=== PATIENT | female | born 1980 | race Two or more races ===

== ENCOUNTER 2020-10-21 22:21 | Emergency (ER) | payer OTHER ==
[~2020-10-21] VITALS: Ht 162.6 cm; Wt 77.1 kg
[~2020-10-21 22:21] MED LIST: AMBIEN CR12.5 MG/BL PO; ATENOLOL25 MG PO; DALMANE30 MG; KLONOPIN0.5 MG/TAB PO; KLONOPIN2 MG/TAB; LAMICTAL100 MG; TENORMIN25 MG; TENORMIN50 MG; WELLBUTRIN XL150 MG
[2020-10-22] MEDS ORDERED: LEVSIN0.125 MG PO (04:53)
[2020-10-22] MEDS ORDERED: PEPCID20 MG PO (04:53)
[2020-10-22] MEDS ORDERED: AZITHROMYCIN500 MG PO (04:53)
[2020-10-22] MEDS ORDERED: PROTONIX20 MG PO (04:53)
[2020-10-22] MEDS ORDERED: INTESTINEX680 M2 PO (04:53)
== END 2020-10-22 05:06 | disposition home or self-care (01) ==
LOC: ER 22:21
DX: R10.9 Unspecified abdominal pain (principal); R19.7 Diarrhea, unspecified; H92.02 Otalgia, left ear; R11.2 Nausea with vomiting, unspecified; Z20.822 Contact with and (suspected) exposure to COVID-19

== ENCOUNTER 2021-03-26 20:26 | Emergency (ER) | payer OTHER ==
[~2021-03-26] VITALS: Ht 162.6 cm; Wt 77.1 kg
[~2021-03-26 20:26] MED LIST changes: +AZITHROMYCIN500 MG PO; +INTESTINEX680 M2 PO; +LEVSIN0.125 MG PO; +PEPCID20 MG PO; +PROTONIX20 MG PO
[2021-03-26] MEDS ORDERED: ATENOLOL50 MG PO (20:34)
[2021-03-26] MEDS ORDERED: CLONAZEPAM2 MG PO (20:34)
[2021-03-26] MEDS ORDERED: LISINOPRIL20 MG PO (20:34)
[2021-03-26] MEDS ORDERED: EPIPEN0.3 MG/0.1 IJ (20:35)
== END 2021-03-26 22:48 | disposition home or self-care (01) ==
LOC: ER 20:26
DX: D25.1 Intramural leiomyoma of uterus (principal); N93.8 Other specified abnormal uterine and vaginal bleeding

== ENCOUNTER 2021-07-01 19:45 | Emergency (ER) | payer OTHER ==
[~2021-07-01] VITALS: Ht 162.6 cm; Wt 77.1 kg
[~2021-07-01 19:45] MED LIST changes: +ATENOLOL50 MG PO; +CLONAZEPAM2 MG PO; +EPIPEN0.3 MG/0.1 IJ; +LISINOPRIL20 MG PO
[2021-07-01] MEDS ORDERED: PROTONIX40 MG (20:20)
== END 2021-07-01 22:14 | disposition home or self-care (01) ==
LOC: ER 19:45
DX: N20.0 Calculus of kidney (principal); Z87.442 Personal history of urinary calculi; M62.838 Other muscle spasm; I10 Essential (primary) hypertension; F32.A Depression, unspecified; Z91.013 Allergy to seafood

== ENCOUNTER 2021-08-17 17:47 | Emergency (ER) | payer OTHER ==
[~2021-08-17] VITALS: Ht 162.6 cm; Wt 77.1 kg
[~2021-08-17 17:47] MED LIST changes: +PROTONIX40 MG
[2021-08-17] MEDS ORDERED: MEDROXYPROGESTE10 MG PO (22:51)
== END 2021-08-17 22:54 | disposition home or self-care (01) ==
LOC: ER 17:47
DX: N92.3 Ovulation bleeding (principal); Z88.8 Allergy status to other drugs, medicaments and biological substances; Z91.013 Allergy to seafood; I10 Essential (primary) hypertension

== ENCOUNTER 2022-01-31 21:05 | Emergency (ER) | payer OTHER ==
[~2022-01-31] VITALS: Ht 162.6 cm; Wt 77.1 kg
[~2022-01-31 21:05] MED LIST changes: +MEDROXYPROGESTE10 MG PO; +PEPCID40 MG PO; +VASOTEC5 MG PO; +ZOFRAN8 MG PO
[2022-01-31] MEDS ORDERED: DOLOGEN CAPLET1 EACH PO (22:53)
[2022-01-31] MEDS ORDERED: MEDROXYPROGESTE10 MG PO (22:53)
== END 2022-01-31 22:59 | disposition home or self-care (01) ==
LOC: ER 21:05
DX: D25.9 Leiomyoma of uterus, unspecified (principal); N93.9 Abnormal uterine and vaginal bleeding, unspecified; Z88.8 Allergy status to other drugs, medicaments and biological substances

== ENCOUNTER 2022-06-11 22:58 | Emergency (ER) | payer OTHER ==
[~2022-06-11] VITALS: Ht 162.6 cm; Wt 77.1 kg
[~2022-06-11 22:58] MED LIST changes: +DOLOGEN CAPLET1 EACH PO
== END 2022-06-12 00:50 | disposition home or self-care (01) ==
LOC: ER 22:58
DX: M54.2 Cervicalgia (principal); G24.3 Spasmodic torticollis; Z88.8 Allergy status to other drugs, medicaments and biological substances

== ENCOUNTER 2024-08-04 10:42 | Emergency (ER) | payer OTHER ==
[~2024-08-04] VITALS: Ht 162.6 cm; Wt 77.1 kg
[2024-08-04] MEDS ORDERED: HYDROCHLOROTHIA25 MG PO (11:54)
[2024-08-04] MEDS ORDERED: LOSARTAN POTASS50 MG PO (11:54)
[2024-08-04] MEDS ORDERED: MORPHINE SULFATE 4 MG/ML VIAL IV STA (12:53)
[2024-08-04 13:39] LABS: BASO % 0.4 % (0.1-1.2); EOS # 0.13 (0.04-0.54); EOS % 1.7 % (0.7-7.0); HEMATOCRIT 36.7 % (34.1-44.9); LYMPH # 1.54 (1.18-3.74); LYMPH % 19.9 % (19.3-53.1); MEAN CORPUSCULAR HEMOGLOBIN 27.2 pg (25.6-32.2); MONO # 0.72 (0.24-0.82); MONO % 9.3 % (4.7-12.5); NEUT # 5.27 (1.56-6.13); NEUT % 68.3 % (34.0-71.1); PLATELET COUNT 181 K/uL (163-369); RED BLOOD COUNT 4.41 M/uL (3.93-5.22); RED CELL DISTRIBUTION WIDTH 13.6 % (11.6-14.4)
[2024-08-04 14:03] LABS: CREATININE SERUM 0.78 mg/dL (0.55-1.02); GFR 79.51; POTASSIUM 3.88 mEq/L (3.5-5.1)
[2024-08-04 14:24] LABS: PH,URINE 5.5 (5.0-8.0); URINE APPEARANCE Turbid; URINE BILIRRUBIN Negative (NEGATIVE); URINE BLOOD Trace; URINE COLOR Yellow; URINE GLUCOSE Negative (NEGATIVE); URINE KETONE Trace (NEGATIVE); URINE LEUKOCYTE Large; URINE NITRATE Negative; URINE PROTEIN Trace (NEGATIVE); URINE UROBILINOGEN 0.2 E.U./dl
[2024-08-04 14:26] LABS: URINE CAST 3.53 uL (0.0-1.40); URINE EPITHELIAL CELLS 114.7 uL (0.0-38.8); URINE RBC 36.2 uL (0.0-20.8); URINE WBC 994.6 uL (0.0-23.2)
[2024-08-04 15:44] LABS: URINE BACTERIA > 9821.5 uL (0.0-1933)
[2024-08-04 15:45] LABS: URINE CRYSTALS FEW /HPF
[2024-08-04 15:46] LABS: URINE MUCUS MODERATE
[2024-08-04 15:47] LABS: URINE YEAST FEW /hpf
[2024-08-04] MEDS ORDERED: levoFLOXacin IN DEXTROSE 5 % 500MG/100ML PIGGYBAG IV ONE ×2 (17:45→18:25)
[2024-08-04] MEDS ORDERED: ONDANSETRON HCL 2 MG/ML VIAL ONE (19:14)
== END 2024-08-04 20:15 | disposition home or self-care (01) ==
LOC: ER 11:06
PROVIDERS: General Practice
DX: N39.0 Urinary tract infection, site not specified (principal); N28.1 Cyst of kidney, acquired; Z88.8 Allergy status to other drugs, medicaments and biological substances

== ENCOUNTER 2024-08-13 18:57 | Emergency (ER) | payer OTHER ==
[~2024-08-13] VITALS: Ht 162.6 cm; Wt 77.1 kg
[~2024-08-13 18:57] MED LIST changes: +HYDROCHLOROTHIA25 MG PO; +LOSARTAN POTASS50 MG PO
[2024-08-13 20:44] LABS: BASO % 0.5 % (0.1-1.2); EOS # 0.08 (0.04-0.54); HEMATOCRIT 38.5 % (34.1-44.9); HEMOGLOBIN 12.9 g/dL (11.2-15.7); LYMPH # 1.54 (1.18-3.74); LYMPH % 19.3 % (19.3-53.1); MEAN CORPUSCULAR HEMOGLOBIN 27.4 pg (25.6-32.2); MONO # 0.75 (0.24-0.82); MONO % 9.4 % (4.7-12.5); NEUT # 5.49 (1.56-6.13); NEUT % 68.9 % (34.0-71.1); PLATELET COUNT 210 K/uL (163-369); RED BLOOD COUNT 4.71 M/uL (3.93-5.22); RED CELL DISTRIBUTION WIDTH 13.2 % (11.6-14.4)
[2024-08-13 20:51] LABS: PARTIAL THROMBOPLASTIN TIME 24.3 SECONDS (22.0-34.0); PROTHROMBIN TIME 10.9 SECONDS (9.0-11.5)
[2024-08-13 20:56] LABS: ALBUMIN 3.2 gm/dL (3.4-5.0); BILIRUBIN TOTAL 0.31 mg/dL (0.3-1.2); CALCIUM 8.6 mg/dL (8.5-10.1); CREATININE SERUM 0.97 mg/dL (0.55-1.02); GFR 61.82; POTASSIUM 4.06 mEq/L (3.5-5.1); TOTAL PROTEIN 6.2 gm/dL (6.4-8.2)
[2024-08-13 21:30] LABS: PH,URINE 6.5 (5.0-8.0); URINE APPEARANCE Cloudy; URINE BILIRRUBIN Negative (NEGATIVE); URINE BLOOD Negative; URINE COLOR Yellow; URINE GLUCOSE Negative (NEGATIVE); URINE KETONE Trace (NEGATIVE); URINE LEUKOCYTE Negative; URINE NITRATE Negative; URINE PROTEIN Trace (NEGATIVE); URINE UROBILINOGEN 0.2 E.U./dl
[2024-08-13 21:34] LABS: URINE BACTERIA 2560.5 uL (0.0-1933); URINE CAST 2.06 uL (0.0-1.40); URINE EPITHELIAL CELLS 163.6 uL (0.0-38.8); URINE WBC 39.2 uL (0.0-23.2)
[2024-08-13 21:47] LABS: URINE MUCUS HEAVY
== END 2024-08-13 22:05 | disposition home or self-care (01) ==
LOC: ER 19:02
PROVIDERS: General Practice
DX: N83.209 Unspecified ovarian cyst, unspecified side (principal); R10.9 Unspecified abdominal pain; I10 Essential (primary) hypertension; Z88.5 Allergy status to narcotic agent; Z88.9 Allergy status to unspecified drugs, medicaments and biological substances

== ENCOUNTER 2024-08-16 02:24 | Emergency (ER) | payer OTHER ==
[~2024-08-16] VITALS: Ht 162.6 cm; Wt 77.1 kg
[2024-08-16] MEDS ORDERED: MORPHINE SULFATE 4 MG/ML VIAL IV STA (07:49)
[2024-08-16] MEDS ORDERED: 0.9 % SODIUM CHLORIDE 1,000 ML IV STA (07:49)
[2024-08-16] MEDS ORDERED: DIPHENHYDRAMINE HCL 50 MG/ML VIAL 1ML IV STA (07:50)
[2024-08-16] MEDS ORDERED: METHYLPREDNISOLONE SOD SUCC 125 MG VIAL IV STA (07:50)
[2024-08-16] MEDS ORDERED: METHYLPREDNISOLONE SOD SUCC 125 MG VIAL ONE (07:57)
[2024-08-16] MEDS ORDERED: DIPHENHYDRAMINE HCL 50 MG/ML VIAL 1ML ONE (07:57)
[2024-08-16] MEDS ORDERED: WATER FOR INJ.,BACTERIOSTATIC 30 ML VIAL IJ ONE (08:00)
[2024-08-16 09:49] LABS: ALBUMIN 3.5 gm/dL (3.4-5.0); BILIRUBIN TOTAL 0.19 mg/dL (0.3-1.2); CREATININE SERUM 0.79 mg/dL (0.55-1.02); GFR 78.35; GLOBULINA 3.7 G/DL (2.4-3.5); POTASSIUM 3.81 mEq/L (3.5-5.1); TOTAL PROTEIN 7.2 gm/dL (6.4-8.2)
[2024-08-16 10:07] LABS: BASO % 0.1 % (0.1-1.2); EOS # 0.02 (0.04-0.54); EOS % 0.1 % (0.7-7.0); HEMATOCRIT 40.3 % (34.1-44.9); HEMOGLOBIN 13.2 g/dL (11.2-15.7); LYMPH # 1.77 (1.18-3.74); LYMPH % 13.1 % (19.3-53.1); MEAN CORPUSCULAR HEMOGLOBIN 27.4 pg (25.6-32.2); MONO # 1.05 (0.24-0.82); MONO % 7.7 % (4.7-12.5); NEUT # 10.59 (1.56-6.13); NEUT % 78.3 % (34.0-71.1); PLATELET COUNT 229 K/uL (163-369); RED BLOOD COUNT 4.82 M/uL (3.93-5.22); RED CELL DISTRIBUTION WIDTH 13.7 % (11.6-14.4)
[2024-08-16 10:08] LABS: PH,URINE 5.5 (5.0-8.0); URINE APPEARANCE Cloudy; URINE BILIRRUBIN Negative (NEGATIVE); URINE BLOOD Negative; URINE COLOR Yellow; URINE GLUCOSE Negative (NEGATIVE); URINE KETONE Negative (NEGATIVE); URINE LEUKOCYTE Negative; URINE NITRATE Negative; URINE PROTEIN Negative (NEGATIVE); URINE UROBILINOGEN 0.2 E.U./dl
[2024-08-16 10:12] LABS: URINE EPITHELIAL CELLS 33.4 uL (0.0-38.8); URINE RBC 24.3 uL (0.0-20.8); URINE WBC 2.3 uL (0.0-23.2)
[2024-08-16 10:15] LABS: INR 0.94; PARTIAL THROMBOPLASTIN TIME 24.2 SECONDS (22.0-34.0); PROTHROMBIN TIME 10.3 SECONDS (9.0-11.5)
[2024-08-16 10:40] LABS: URINE CAST 0.29 uL (0.0-1.40); URINE CRYSTALS MODERATE /HPF; URINE YEAST FEW /hpf
== END 2024-08-16 14:37 | disposition home or self-care (01) ==
LOC: ER 03:22
DX: N39.0 Urinary tract infection, site not specified (principal); Z88.8 Allergy status to other drugs, medicaments and biological substances

== ENCOUNTER 2024-08-19 22:03 | Emergency (ER) | payer OTHER ==
[~2024-08-19] VITALS: Ht 162.6 cm; Wt 773.4 kg
[2024-08-20] MEDS ORDERED: CEFTRIAXONE SODIUM 1,000 MG VIAL IM STA (01:06)
[2024-08-20] MEDS ORDERED: NEOMYCIN/POLYMYXIN B/HYDROCORT 20 DR/ML BOTTLE OT STA (01:06)
[2024-08-20] MEDS ORDERED: OxyCODONE HCL/APAP UD (PERCOCET) PO STA (01:07)
[2024-08-20] MEDS ORDERED: NEOMYCIN/POLYMYXIN B/HYDROCORT 20 DR/ML BOTTLE OT ONE (01:08)
[2024-08-20] MEDS ORDERED: CEFTRIAXONE SODIUM 1,000 MG VIAL ONE (01:08)
[2024-08-20] MEDS ORDERED: CEPHALEXIN500 MG PO (01:09)
[2024-08-20] MEDS ORDERED: PHENAGIL TABLE1 EACH PO (01:09)
[2024-08-20] MEDS ORDERED: CORTISPORIN EAR10 M1 OTIC (01:10)
== END 2024-08-20 01:35 ==
LOC: ER 22:24
DX: H60.8X2 Other otitis externa, left ear (principal); J32.9 Chronic sinusitis, unspecified; Z88.8 Allergy status to other drugs, medicaments and biological substances

== ENCOUNTER → 2024-08-22 | Emergency (ER) | payer OTHER ==
[~2024-08-22] VITALS: Ht 162.6 cm; Wt 77.1 kg
[~2024-08-22] MED LIST changes: +ACETAMINOPHEN 500 MG GEL..CAP PO ONE; +CEFTRIAXONE SODIUM 1,000 MG VIAL IM STA; +CEFTRIAXONE SODIUM 1,000 MG VIAL ONE; +CEPHALEXIN500 MG PO; +CORTISPORIN EAR10 M1 OTIC; +KETOROLAC TROMETHAMINE 30 MG VIAL IM STA; +KETOROLAC TROMETHAMINE 30 MG VIAL ONE; +PHENAGIL TABLE1 EACH PO
[2024-08-22 22:15] LABS: BASO % 0.6 % (0.1-1.2); EOS # 0.36 (0.04-0.54); EOS % 5.5 % (0.7-7.0); HEMATOCRIT 41.9 % (34.1-44.9); HEMOGLOBIN 13.7 g/dL (11.2-15.7); LYMPH # 1.46 (1.18-3.74); LYMPH % 22.4 % (19.3-53.1); MEAN CORPUSCULAR HEMOGLOBIN 27.1 pg (25.6-32.2); MONO # 0.97 (0.24-0.82); NEUT # 3.63 (1.56-6.13); NEUT % 55.8 % (34.0-71.1); PLATELET COUNT 186 K/uL (163-369); RED BLOOD COUNT 5.05 M/uL (3.93-5.22); RED CELL DISTRIBUTION WIDTH 13.5 % (11.6-14.4)
[2024-08-22 22:17] LABS: MONO % 14.9 % (4.7-12.5)
[2024-08-22 22:21] LABS: PH,URINE 6.5 (5.0-8.0); URINE APPEARANCE Cloudy; URINE BILIRRUBIN Negative (NEGATIVE); URINE BLOOD Negative; URINE COLOR Yellow; URINE GLUCOSE Negative (NEGATIVE); URINE KETONE Trace (NEGATIVE); URINE LEUKOCYTE Negative; URINE NITRATE Negative; URINE PROTEIN Trace (NEGATIVE); URINE UROBILINOGEN 0.2 E.U./dl
[2024-08-22 22:25] LABS: URINE BACTERIA 72.2 uL (0.0-1933); URINE CAST 2.65 uL (0.0-1.40); URINE EPITHELIAL CELLS 89.9 uL (0.0-38.8); URINE RBC 85.1 uL (0.0-20.8); URINE WBC 20.8 uL (0.0-23.2)
[2024-08-22 22:31] LABS: TYPE CELLS SQUAMOUS
[2024-08-22 22:37] LABS: INFLUENZA A AG NEGATIVE (NEGATIVE); INFLUENZA B AG NEGATIVE (NEGATIVE)
[2024-08-22 22:45] LABS: ALBUMIN 3.2 gm/dL (3.4-5.0); BILIRUBIN TOTAL 0.33 mg/dL (0.3-1.2); CALCIUM 9.3 mg/dL (8.5-10.1); CREATININE SERUM 1.28 mg/dL (0.55-1.02); GFR 44.89; GLOBULINA 3.4 G/DL (2.4-3.5); POTASSIUM 4.45 mEq/L (3.5-5.1); TOTAL PROTEIN 6.6 gm/dL (6.4-8.2)
[2024-08-22 22:51] LABS: COVID-19 AG POSITIVE (NEGATIVE)
== END | disposition home or self-care (01) ==
LOC: ER 19:31
PROVIDERS: General Practice
DX: U07.1 COVID-19 (principal); H60.92 Unspecified otitis externa, left ear; Z88.8 Allergy status to other drugs, medicaments and biological substances

== ENCOUNTER 2024-08-25 10:02 | Emergency (ER) | payer OTHER ==
[~2024-08-25] VITALS: Ht 162.6 cm; Wt 77.1 kg
[~2024-08-25 10:02] MED LIST changes: -ACETAMINOPHEN 500 MG GEL..CAP PO ONE; -CEFTRIAXONE SODIUM 1,000 MG VIAL IM STA; -CEFTRIAXONE SODIUM 1,000 MG VIAL ONE; -KETOROLAC TROMETHAMINE 30 MG VIAL IM STA; -KETOROLAC TROMETHAMINE 30 MG VIAL ONE
[2024-08-25] MEDS ORDERED: ACETAMINOPHEN 500 MG GEL..CAP PO ONE (12:30)
[2024-08-25 13:04] LABS: BASO % 0.4 % (0.1-1.2); EOS # 0.13 (0.04-0.54); EOS % 1.8 % (0.7-7.0); HEMATOCRIT 39.1 % (34.1-44.9); HEMOGLOBIN 12.8 g/dL (11.2-15.7); LYMPH # 2.17 (1.18-3.74); LYMPH % 30.8 % (19.3-53.1); MEAN CORPUSCULAR HEMOGLOBIN 27.2 pg (25.6-32.2); MONO # 0.59 (0.24-0.82); MONO % 8.4 % (4.7-12.5); NEUT # 4.08 (1.56-6.13); NEUT % 57.9 % (34.0-71.1); PLATELET COUNT 185 K/uL (163-369); RED CELL DISTRIBUTION WIDTH 13.2 % (11.6-14.4)
[2024-08-25 13:35] LABS: CALCIUM 9.4 mg/dL (8.5-10.1); CREATININE SERUM 0.69 mg/dL (0.55-1.02); GFR 91.59; POTASSIUM 4.1 mEq/L (3.5-5.1)
[2024-08-25 13:40] LABS: URINE APPEARANCE Clear; URINE BILIRRUBIN Negative (NEGATIVE); URINE BLOOD Negative; URINE COLOR Yellow; URINE GLUCOSE Negative (NEGATIVE); URINE KETONE Trace (NEGATIVE); URINE LEUKOCYTE Negative; URINE NITRATE Negative; URINE PROTEIN Negative (NEGATIVE); URINE UROBILINOGEN 0.2 E.U./dl
[2024-08-25 13:44] LABS: URINE EPITHELIAL CELLS 21.9 uL (0.0-38.8); URINE RBC 9.2 uL (0.0-20.8); URINE WBC 18.8 uL (0.0-23.2)
[2024-08-25 14:02] LABS: COVID-19 AG NEGATIVE (NEGATIVE)
[2024-08-25 14:14] LABS: INFLUENZA A AG NEGATIVE (NEGATIVE); INFLUENZA B AG NEGATIVE (NEGATIVE)
== END 2024-08-25 16:12 | disposition home or self-care (01) ==
LOC: ER 10:02
PROVIDERS: Emergency Medicine
DX: J40 Bronchitis, not specified as acute or chronic (principal); Z91.013 Allergy to seafood; I10 Essential (primary) hypertension; Z20.822 Contact with and (suspected) exposure to COVID-19

== ENCOUNTER 2024-09-02 18:51 | Emergency (ER) | payer OTHER ==
[~2024-09-02] VITALS: Ht 162.6 cm; Wt 77.1 kg
[2024-09-02] MEDS ORDERED: DEXAMETHASONE SODIUM PHOSPHATE 4 MG/ML VIAL IM STA (19:39)
[2024-09-02] MEDS ORDERED: CEFTRIAXONE SODIUM 1,000 MG VIAL IM STA (19:39)
[2024-09-02 20:31] LABS: BASO % 0.4 % (0.1-1.2); EOS # 0.26 (0.04-0.54); EOS % 2.6 % (0.7-7.0); LYMPH # 2.67 (1.18-3.74); LYMPH % 27.1 % (19.3-53.1); MEAN PLATELET VOLUME 10.50 fl (9.4-12.4); MONO # 0.77 (0.24-0.82); MONO % 7.8 % (4.7-12.5); NEUT # 6.00 (1.56-6.13); NEUT % 61.0 % (34.0-71.1); RED CELL DISTRIBUTION WIDTH 13.8 % (11.6-14.4)
[2024-09-02 20:34] LABS: COVID-19 AG NEGATIVE (NEGATIVE)
[2024-09-05] MEDS ORDERED: AMOX-CLAV 875-1 EACH PO (18:59)
[2024-09-05] MEDS ORDERED: PEPCID AC20 MG PO (18:59)
== END 2024-09-02 21:13 | disposition home or self-care (01) ==
LOC: ER 19:18
PROVIDERS: General Practice
DX: M43.6 Torticollis (principal); R53.1 Weakness; Z88.8 Allergy status to other drugs, medicaments and biological substances; Z20.822 Contact with and (suspected) exposure to COVID-19

== ENCOUNTER → 2024-09-05 | Emergency (ER) | payer OTHER ==
[~2024-09-05] VITALS: Ht 162.6 cm; Wt 79.4 kg
[~2024-09-05] MED LIST changes: +ACETAMINOPHEN 500 MG GEL..CAP PO ONE; +AMOX-CLAV 875-1 EACH PO; +CEFTRIAXONE SODIUM 1,000 MG VIAL IM ONE; +CLEOCIN HCL300 MG PO; +GABAPENTIN 300 MG CAPSULE PO ONE; +PEPCID AC20 MG PO; +TRAMADOL HCL50 MG PO
== END | disposition home or self-care (01) ==
LOC: ER 17:38
DX: K08.89 Other specified disorders of teeth and supporting structures (principal); I10 Essential (primary) hypertension; F41.8 Other specified anxiety disorders; Z91.013 Allergy to seafood

== ENCOUNTER 2024-09-06 22:40 | Emergency (ER) | payer OTHER ==
[~2024-09-06] VITALS: Ht 162.6 cm; Wt 79.4 kg
[~2024-09-06 22:40] MED LIST changes: -ACETAMINOPHEN 500 MG GEL..CAP PO ONE; -CEFTRIAXONE SODIUM 1,000 MG VIAL IM ONE; -CLEOCIN HCL300 MG PO; -GABAPENTIN 300 MG CAPSULE PO ONE; -TRAMADOL HCL50 MG PO
[2024-09-07] MEDS ORDERED: CEFTRIAXONE SODIUM 1,000 MG VIAL IM STA (00:51)
[2024-09-07] MEDS ORDERED: TRAMADOL HCL 50 MG TABLET PO STA (00:51)
[2024-09-07] MEDS ORDERED: CLEOCIN HCL300 MG PO (01:02)
[2024-09-07] MEDS ORDERED: TRAMADOL HCL50 MG PO ×2 (01:02→01:03)
== END 2024-09-07 01:31 ==
LOC: ER 22:46
DX: K08.89 Other specified disorders of teeth and supporting structures (principal); Z88.8 Allergy status to other drugs, medicaments and biological substances

== ENCOUNTER 2024-09-10 16:56 | Emergency (ER) | payer OTHER ==
[~2024-09-10] VITALS: Ht 162.6 cm; Wt 77.1 kg
[~2024-09-10 16:56] MED LIST changes: +CLEOCIN HCL300 MG PO; +TRAMADOL HCL50 MG PO
[2024-09-10] MEDS ORDERED: ATIVAN2 M1 PO (17:07)
[2024-09-10] MEDS ORDERED: TRAMADOL HCL 50 MG TABLET PO ONE (17:45)
[2024-09-10] MEDS ORDERED: KETOROLAC TROMETHAMINE 60 MG VIAL IM ONE (17:45)
[2024-09-10 18:01] LABS: BASO % 0.4 % (0.1-1.2); EOS # 0.11 (0.04-0.54); EOS % 1.0 % (0.7-7.0); LYMPH # 1.96 (1.18-3.74); LYMPH % 18.1 % (19.3-53.1); MEAN PLATELET VOLUME 10.20 fl (9.4-12.4); MONO # 0.80 (0.24-0.82); MONO % 7.4 % (4.7-12.5); NEUT # 7.84 (1.56-6.13); NEUT % 72.3 % (34.0-71.1); RED CELL DISTRIBUTION WIDTH 14.4 % (11.6-14.4)
[2024-09-10 18:25] LABS: GLUCOSE FASTING 113.0 mg/dL (65-100); OSMOLALITY SERUM 286.0 MOSM/KG (275-295)
[2024-09-10 18:29] LABS: ALT/SGPT 26.0 U/L (12-78); AST/SGOT 8.0 U/L (15-37); BILIRUBIN TOTAL 0.31 mg/dL (0.3-1.2); BUN CREA RATIO 14.0 (7.0-25.0); CREATININE SERUM 0.92 mg/dL (0.55-1.02); GFR 65.72; GLOBULINA 3.0 G/DL (2.4-3.5)
[2024-09-10 19:18] LABS: URINE APPEARANCE Cloudy; URINE BILIRRUBIN Negative (NEGATIVE); URINE BLOOD Negative; URINE COLOR Dark Yellow; URINE GLUCOSE Negative (NEGATIVE); URINE KETONE Trace (NEGATIVE); URINE LEUKOCYTE Negative; URINE NITRATE Negative; URINE PROTEIN Negative (NEGATIVE); URINE UROBILINOGEN 0.2 E.U./dl
[2024-09-10 19:22] LABS: URINE BACTERIA 2279.9 uL (0.0-1933); URINE CAST 1.90 uL (0.0-1.40); URINE EPITHELIAL CELLS 85.0 uL (0.0-38.8); URINE RBC 209.1 uL (0.0-20.8); URINE WBC 24.1 uL (0.0-23.2)
[2024-09-10 19:59] LABS: TYPE CELLS SQUAMOUS; URINE CRYSTALS MODERATE /HPF
[2024-09-10 20:00] LABS: URINE MUCUS MODERATE; URINE YEAST FEW /hpf
[2024-09-10 23:48] VITALS: BP 148/87; O2SAT 96
[2024-09-10] MEDS ORDERED: BACTRIM DS TAB1 EACH PO (23:59)
[2024-09-10] MEDS ORDERED: PEPCID AC20 MG PO (23:59)
== END 2024-09-11 00:05 | disposition home or self-care (01) ==
LOC: ER 16:56
PROVIDERS: General Practice
DX: N39.0 Urinary tract infection, site not specified (principal); I10 Essential (primary) hypertension; Z88.8 Allergy status to other drugs, medicaments and biological substances

== ENCOUNTER 2024-09-11 00:19 | Emergency (ER) | payer OTHER ==
[~2024-09-11] VITALS: Ht 162.6 cm; Wt 77.1 kg
[~2024-09-11 00:19] MED LIST changes: +ATIVAN2 M1 PO; +BACTRIM DS TAB1 EACH PO
[2024-09-11] MEDS ORDERED: CLINDAMYCIN PHOSPHATE 150 MG/ML (600mg) IM STA (05:10)
[2024-09-11] MEDS ORDERED: DEXAMETHASONE SODIUM PHOSPHATE 4 MG/ML VIAL IM STA (05:10)
[2024-09-11] MEDS ORDERED: ACETAMINOPHEN WITH CODEINE 1 UDTAB TABLET PO STA (05:11)
== END 2024-09-11 05:45 | disposition home or self-care (01) ==
LOC: ER 00:19
DX: K05.219 Aggressive periodontitis, localized, unspecified severity (principal); K05.10 Chronic gingivitis, plaque induced; Z88.6 Allergy status to analgesic agent; Z88.8 Allergy status to other drugs, medicaments and biological substances

== ENCOUNTER 2024-09-13 23:53 | Emergency (ER) | payer OTHER ==
[~2024-09-13] VITALS: Ht 162.6 cm; Wt 77.1 kg
[2024-09-14] MEDS ORDERED: PROMETHAZINE HCL 25 MG/ML AMPUL IM STA (04:42)
[2024-09-14] MEDS ORDERED: METOCLOPRAMIDE HCL 5 MG/ML VIAL IM STA (04:42)
[2024-09-15] MEDS ORDERED: VASOTEC10 MG PO (01:57)
== END 2024-09-14 04:58 | disposition home or self-care (01) ==
LOC: ER 23:56
DX: K29.60 Other gastritis without bleeding (principal); Z88.8 Allergy status to other drugs, medicaments and biological substances

== ENCOUNTER 2024-09-15 01:53 | Emergency (ER) | payer OTHER ==
[~2024-09-15] VITALS: Ht 162.6 cm; Wt 77.1 kg
[2024-09-15] MEDS ORDERED: VASOTEC10 MG PO (01:57)
[2024-09-15 01:58] VITALS: BP 137/93; O2SAT 100
[2024-09-15] MEDS ORDERED: PROMETHAZINE HCL 50 MG/ML AMPUL IM STA (03:22)
[2024-09-15] MEDS ORDERED: RINGERS SOLUTION,LACTATED 500 ML IV STA (03:23)
[2024-09-15] MEDS ORDERED: FAMOtidine 10 MG/ML (4ML VIAL) IV PUSH STA (03:24)
[2024-09-15 03:53] LABS: BASO % 0.3 % (0.1-1.2); EOS # 0.10 (0.04-0.54); EOS % 0.9 % (0.7-7.0); LYMPH # 1.73 (1.18-3.74); LYMPH % 15.6 % (19.3-53.1); MEAN PLATELET VOLUME 10.00 fl (9.4-12.4); MONO # 0.85 (0.24-0.82); MONO % 7.7 % (4.7-12.5); NEUT # 8.26 (1.56-6.13); NEUT % 74.6 % (34.0-71.1); RED CELL DISTRIBUTION WIDTH 14.6 % (11.6-14.4)
[2024-09-16] MEDS ORDERED: AZITHROMYCIN500 MG PO (09:59)
[2024-09-16] MEDS ORDERED: ZYRTEC10 MG PO (09:59)
[2024-09-16] MEDS ORDERED: BENZONATATE200 M1 PO (09:59)
== END 2024-09-15 05:51 | disposition home or self-care (01) ==
LOC: ER 01:53
DX: K52.9 Noninfective gastroenteritis and colitis, unspecified (principal); R14.3 Flatulence; R14.1 Gas pain; R14.2 Eructation; R10.9 Unspecified abdominal pain; Z88.6 Allergy status to analgesic agent; Z88.8 Allergy status to other drugs, medicaments and biological substances

== ENCOUNTER 2024-09-15 22:56 | Emergency (ER) | payer OTHER ==
[~2024-09-15] VITALS: Ht 162.6 cm; Wt 77.1 kg
[~2024-09-15 22:56] MED LIST changes: +VASOTEC10 MG PO
[2024-09-16] MEDS ORDERED: KETOROLAC TROMETHAMINE 60 MG VIAL IM STA (06:01)
[2024-09-16] MEDS ORDERED: CEFTRIAXONE SODIUM 1,000 MG VIAL IM STA (06:01)
[2024-09-16 06:45] LABS: BASO % 0.6 % (0.1-1.2); EOS # 0.14 (0.04-0.54); EOS % 1.4 % (0.7-7.0); LYMPH # 1.99 (1.18-3.74); LYMPH % 19.5 % (19.3-53.1); MEAN PLATELET VOLUME 11.10 fl (9.4-12.4); MONO # 0.98 (0.24-0.82); MONO % 9.6 % (4.7-12.5); NEUT # 6.91 (1.56-6.13); NEUT % 67.6 % (34.0-71.1); RED CELL DISTRIBUTION WIDTH 14.8 % (11.6-14.4)
[2024-09-16 07:15] LABS: URINE APPEARANCE Cloudy; URINE BILIRRUBIN Negative (NEGATIVE); URINE BLOOD Negative; URINE COLOR Yellow; URINE GLUCOSE Negative (NEGATIVE); URINE KETONE Negative (NEGATIVE); URINE LEUKOCYTE Negative; URINE NITRATE Negative; URINE PROTEIN Negative (NEGATIVE); URINE UROBILINOGEN 0.2 E.U./dl
[2024-09-16 07:19] LABS: URINE BACTERIA 9342.0 uL (0.0-1933); URINE CAST 2.78 uL (0.0-1.40); URINE EPITHELIAL CELLS 143.6 uL (0.0-38.8); URINE RBC 17.5 uL (0.0-20.8); URINE WBC 23.2 uL (0.0-23.2)
[2024-09-16 07:45] LABS: COVID-19 AG NEGATIVE (NEGATIVE)
[2024-09-16] MEDS ORDERED: ZYRTEC10 MG PO (09:59)
[2024-09-16] MEDS ORDERED: BENZONATATE200 M1 PO (09:59)
[2024-09-16] MEDS ORDERED: AZITHROMYCIN500 MG PO (09:59)
[2024-09-16 11:03] VITALS: BP 132/88; O2SAT 98
== END 2024-09-16 11:04 | disposition home or self-care (01) ==
LOC: ER 22:56
PROVIDERS: General Practice
DX: J06.9 Acute upper respiratory infection, unspecified (principal); R30.0 Dysuria; Z20.822 Contact with and (suspected) exposure to COVID-19; I10 Essential (primary) hypertension; Z88.6 Allergy status to analgesic agent; Z88.8 Allergy status to other drugs, medicaments and biological substances

== ENCOUNTER → 2024-09-23 | Emergency (ER) | payer OTHER ==
[~2024-09-23] VITALS: Ht 162.6 cm; Wt 77.1 kg
[~2024-09-23] MED LIST changes: +0.9 % SODIUM CHLORIDE 1,000 ML IV SCH; +BENZONATATE200 M1 PO; +CEFTRIAXONE SODIUM 2,000 MG VIAL IV ONE; +CEFTRIAXONE SODIUM 2,000 MG VIAL ONE; +FAMOTIDINE/PF 20 MG in 0.9 % SODIUM CHLORIDE 8 ML IV PUSH STA; +FAMOTIDINE/PF 20 MG/2 ML VIAL ONE; +LACTOBACILLUS ACIDOPHILUS 1 CAP CAP PO ONE; +MORPHINE SULFATE 4 MG/ML VIAL IV ONE; +SULFAMETHOXAZOLE/TRIMETHOPRIM 16 MG/ML VIAL IV ONE; +ZYRTEC10 MG PO
[2024-09-23 09:28] LABS: BASO % 0.2 % (0.1-1.2); EOS # 0.06 (0.04-0.54); EOS % 0.5 % (0.7-7.0); LYMPH # 1.45 (1.18-3.74); LYMPH % 12.8 % (19.3-53.1); MEAN PLATELET VOLUME 10.00 fl (9.4-12.4); MONO # 0.86 (0.24-0.82); MONO % 7.6 % (4.7-12.5); NEUT # 8.80 (1.56-6.13); NEUT % 78.0 % (34.0-71.1); RED CELL DISTRIBUTION WIDTH 14.6 % (11.6-14.4)
[2024-09-23 09:53] LABS: INR 1.0
[2024-09-23 10:16] LABS: ALT/SGPT 20.0 U/L (12-78); AST/SGOT 7.0 U/L (15-37); BILIRUBIN TOTAL 0.79 mg/dL (0.3-1.2); BUN CREA RATIO 14.0 (7.0-25.0); CREATININE SERUM 0.73 mg/dL (0.55-1.02); GFR 85.83; GLOBULINA 3.7 G/DL (2.4-3.5); GLUCOSE FASTING 85.0 mg/dL (65-100); OSMOLALITY SERUM 281.0 MOSM/KG (275-295)
== END | disposition designated cancer center or children's hospital (05) ==
LOC: ER 07:20
PROVIDERS: General Practice
DX: T81.41XA Infection following a procedure, superficial incisional surgical site, initial encounter (principal); Z91.013 Allergy to seafood; Z88.8 Allergy status to other drugs, medicaments and biological substances; I10 Essential (primary) hypertension

== ENCOUNTER 2024-10-02 22:32 | Emergency (ER) | payer OTHER ==
[~2024-10-02] VITALS: Ht 152.4 cm; Wt 79.4 kg
[~2024-10-02 22:32] MED LIST changes: -0.9 % SODIUM CHLORIDE 1,000 ML IV SCH; -CEFTRIAXONE SODIUM 2,000 MG VIAL IV ONE; -CEFTRIAXONE SODIUM 2,000 MG VIAL ONE; -FAMOTIDINE/PF 20 MG in 0.9 % SODIUM CHLORIDE 8 ML IV PUSH STA; -FAMOTIDINE/PF 20 MG/2 ML VIAL ONE; -LACTOBACILLUS ACIDOPHILUS 1 CAP CAP PO ONE; -MORPHINE SULFATE 4 MG/ML VIAL IV ONE; -SULFAMETHOXAZOLE/TRIMETHOPRIM 16 MG/ML VIAL IV ONE
[2024-10-03] MEDS ORDERED: DEXAMETHASONE SODIUM PHOSPHATE 4 MG/ML VIAL IM STA (02:53)
[2024-10-03] MEDS ORDERED: TRAMADOL HCL 50 MG TABLET PO STA (02:54)
== END 2024-10-03 03:24 | disposition home or self-care (01) ==
LOC: ER 22:32
DX: S40.012A Contusion of left shoulder, initial encounter (principal); S20.224A Contusion of middle back wall of thorax, initial encounter; W18.39XA Other fall on same level, initial encounter; Y93.89 Activity, other specified; Y92.012 Bathroom of single-family (private) house as the place of occurrence of the external cause; Y99.9 Unspecified external cause status; I10 Essential (primary) hypertension; Z88.8 Allergy status to other drugs, medicaments and biological substances

== ENCOUNTER 2024-10-05 02:24 | Emergency (ER) | payer OTHER ==
[~2024-10-05] VITALS: Ht 162.6 cm; Wt 79.4 kg
[2024-10-05] MEDS ORDERED: AUGMENTIN125 MG/5 M PO (02:54)
[2024-10-05] MEDS ORDERED: HYOSCYAMINE SULFATE 0.125 MG TAB.SUBL SL STA (05:32)
[2024-10-05] MEDS ORDERED: FAMOTIDINE/PF 20 MG/2 ML VIAL IV PUSH STA (05:33)
[2024-10-05] MEDS ORDERED: LACTOBACILLUS ACIDOPHILUS 1 CAP CAP PO STA (05:33)
[2024-10-05] MEDS ORDERED: 0.9 % SODIUM CHLORIDE 1,000 ML IV ONE (05:45)
[2024-10-05 06:24] LABS: BASO % 0.9 % (0.1-1.2); EOS # 0.09 (0.04-0.54); EOS % 1.5 % (0.7-7.0); LYMPH # 1.58 (1.18-3.74); LYMPH % 27.1 % (19.3-53.1); MEAN PLATELET VOLUME 9.60 fl (9.4-12.4); MONO # 0.47 (0.24-0.82); MONO % 8.0 % (4.7-12.5); NEUT # 3.61 (1.56-6.13); NEUT % 61.8 % (34.0-71.1); RED CELL DISTRIBUTION WIDTH 14.5 % (11.6-14.4)
[2024-10-05 06:55] LABS: BUN CREA RATIO 18.0 (7.0-25.0); CREATININE SERUM 0.78 mg/dL (0.55-1.02); GFR 79.51; GLUCOSE FASTING 80.0 mg/dL (65-100); OSMOLALITY SERUM 279.0 MOSM/KG (275-295)
[2024-10-05] MEDS ORDERED: ZOFRAN8 MG PO (09:42)
[2024-10-05] MEDS ORDERED: ONDANSETRON HCL 2 MG/ML VIAL IV ONE (10:00)
[2024-10-05] MEDS ORDERED: KETOROLAC TROMETHAMINE 30 MG VIAL IV ONE (10:00)
[2024-10-05 10:26] LABS: URINE APPEARANCE Clear; URINE BILIRRUBIN Negative (NEGATIVE); URINE BLOOD Negative; URINE COLOR Yellow; URINE GLUCOSE Negative (NEGATIVE); URINE KETONE Trace (NEGATIVE); URINE LEUKOCYTE Small; URINE NITRATE Negative; URINE PROTEIN Negative (NEGATIVE); URINE UROBILINOGEN 0.2 E.U./dl
[2024-10-05 10:31] LABS: URINE BACTERIA 34.7 uL (0.0-1933); URINE EPITHELIAL CELLS 52.4 uL (0.0-38.8); URINE RBC 19.0 uL (0.0-20.8); URINE WBC 37.6 uL (0.0-23.2)
[2024-10-05 10:39] LABS: URINE CAST 0.43 uL (0.0-1.40)
[2024-10-05 10:49] LABS: COVID-19 AG NEGATIVE (NEGATIVE)
== END 2024-10-05 15:30 | disposition home or self-care (01) ==
LOC: ER 02:31
PROVIDERS: General Practice
DX: K52.89 Other specified noninfective gastroenteritis and colitis (principal); R11.10 Vomiting, unspecified; I10 Essential (primary) hypertension; Z91.013 Allergy to seafood; Z88.6 Allergy status to analgesic agent; Z20.822 Contact with and (suspected) exposure to COVID-19

== ENCOUNTER 2024-10-15 20:30 | Emergency (ER) | payer OTHER ==
[~2024-10-15] VITALS: Ht 162.6 cm; Wt 72.6 kg
[~2024-10-15 20:30] MED LIST changes: +AUGMENTIN125 MG/5 M PO
[2024-10-15] MEDS ORDERED: PHENERGAN25 MG/1 ML IM (20:51)
[2024-10-15] MEDS ORDERED: INTESTINEX680 M1 PO (20:51)
== END 2024-10-15 23:37 | disposition left against medical advice (07) ==
LOC: ER 20:30
DX: N93.9 Abnormal uterine and vaginal bleeding, unspecified (principal); R10.2 Pelvic and perineal pain; I10 Essential (primary) hypertension; Z88.6 Allergy status to analgesic agent

== ENCOUNTER 2025-01-02 23:50 | Emergency (ER) | payer OTHER ==
[~2025-01-02] VITALS: Ht 162.6 cm; Wt 77.1 kg
[~2025-01-02 23:50] MED LIST changes: +INTESTINEX680 M1 PO; +PHENERGAN25 MG/1 ML IM
[2025-01-03] MEDS ORDERED: CLONAZEPAM1 MG (00:03)
[2025-01-03] MEDS ORDERED: CARVEDILOL6.25 MG (00:03)
[2025-01-03] MEDS ORDERED: BACITRACIN-NEOMYCIN-POLYMYXIN 0.9 GM PACKET TOP ONE (00:04)
[2025-01-03] MEDS ORDERED: CEFAZOLIN SODIUM 1,000 MG VIAL IM STA (03:21)
[2025-01-03] MEDS ORDERED: MORPHINE SULFATE 4 MG/ML CARTRIDGE IV STA (03:24)
[2025-01-03] MEDS ORDERED: CEFAZOLIN SODIUM 1,000 MG VIAL ONE (03:56)
== END 2025-01-03 07:11 | disposition home or self-care (01) ==
LOC: ER 23:50
DX: T22.211A Burn of second degree of right forearm, initial encounter (principal); Z91.013 Allergy to seafood; Z88.8 Allergy status to other drugs, medicaments and biological substances